=== PATIENT | female | born 1985 | race Caucasian/White ===

== ENCOUNTER → 2018-02-28 | Outpatient (CLI) | payer OTHER ==
[~2018-02-28] MED LIST: CALC-451 PO; FERR325T23 PO; IBUP-1222 PO; MECO10002 PO; OXYC-302 PO; PREN1TAB60 PO
== END | disposition home or self-care (01) ==
LOC: CFH 09:32
PROVIDERS: ATTEND Internal Medicine Hematology & Oncology
DX: Z12.31 Encounter for screening mammogram for malignant neoplasm of breast (principal); Z85.3 Personal history of malignant neoplasm of breast
CPT/HCPCS: 76377; 76642; 77063; 77067

== ENCOUNTER → 2019-02-13 | Outpatient (CLI) | payer OTHER | END | disposition home or self-care (01) | LOC: CFH 07:28 | PROVIDERS: ATTEND Internal Medicine Hematology & Oncology | DX: C50.512 Malignant neoplasm of lower-outer quadrant of left female breast (principal); R51 Headache; L65.9 Nonscarring hair loss, unspecified; Z85.3 Personal history of malignant neoplasm of breast | CPT/HCPCS: 76642; 77066; G0279 ==

== ENCOUNTER → 2020-02-17 | Outpatient (CLI) | payer OTHER | END | disposition home or self-care (01) | LOC: CFH 07:09 | PROVIDERS: ATTEND Internal Medicine Hematology & Oncology | DX: Z12.31 Encounter for screening mammogram for malignant neoplasm of breast (principal) | CPT/HCPCS: 77063; 77067 ==

== ENCOUNTER → 2020-03-10 | Outpatient (CLI) | payer OTHER | END | disposition home or self-care (01) | LOC: CFH 07:22 | PROVIDERS: ATTEND Internal Medicine Hematology & Oncology | DX: C50.512 Malignant neoplasm of lower-outer quadrant of left female breast (principal); Z85.3 Personal history of malignant neoplasm of breast | CPT/HCPCS: 76641 ==

== ENCOUNTER → 2021-03-24 | Outpatient (CLI) | payer OTHER ==
[~2021-03-24] MED LIST changes: -OXYC-302 PO; +OXYC1TAB14 PO
== END | disposition home or self-care (01) ==
LOC: CFH 10:13
PROVIDERS: ATTEND Internal Medicine Hematology & Oncology
DX: Z12.31 Encounter for screening mammogram for malignant neoplasm of breast (principal); C50.512 Malignant neoplasm of lower-outer quadrant of left female breast; Z85.3 Personal history of malignant neoplasm of breast
CPT/HCPCS: 76641; 77063; 77067